=== PATIENT | male | born 1975 | race Caucasian/White ===

== ENCOUNTER → 2017-09-23 14:44 | Outpatient (CLI) | payer BC, SELFPAY ==
[2017-09-24 18:46] LABS: Bacteria 0 SEEN /hpf (None Seen); Mucous, Urine 0 SEEN /hpf (<or=2+); Red Blood Cells-Urine 0 SEEN /hpf (0-5); Squamous Epithelial Cells - UA 0 SEEN /hpf (0-5)
[2017-09-24 19:34] LABS: Color, Urine Yellow (Yellow); Glucose, Dipstick Normal (Normal); Ketone-Dipstick Negative (Negative); Leukocyte Esterase-Dipstick 25 /ul (Negative); Nitrite-Dipstick Negative (Negative); Occult Blood-Urine Negative /ul (Negative); Protein-Dipstick Negative (Negative); Urine Bilirubin Dipstick Negative (Negative); Urine Clarity Clear (Clear); Urine Urobilinogen 1 mg/dl (Normal)
[2017-09-24 19:53] LABS: White Blood Cells 0-5 SEEN /hpf (0-5)
== END ==
PROVIDERS: PCP Family Medicine; Visit Provider Physician Assistant
DX: N39.0 Urinary tract infection, site not specified (principal)
CPT/HCPCS: 81001; 87086

== ENCOUNTER 2018-03-25 14:25 | Emergency (ER) | payer BC, SELFPAY ==
[2018-03-25 14:26] VITALS: BP 120/69; PULSE 73; RESP 15; TEMP 36.8; O2SAT 99; BMI 24.9
[2018-03-25 15:25] VITALS: RESP 18
--- NOTE | 2018-03-25 15:55 | RAD_ITS ---
STUDY: X-RAY - LUMBAR SPINE REASON FOR EXAM: Male, 42 years old. Back pain TECHNIQUE: 3 view(s) of the lumbar spine were obtained. COMPARISON: None FINDINGS: Normal lumbar lordosis. There is no substantial scoliosis. There is a normal alignment of the vertebrae. Normal vertebral bodies and endplates. Normal disc space heights. The soft tissue structures are unremarkable. RAD/Lumbar Spine 2 or 3 Views IMPRESSION: Normal x-ray examination of the lumbar spine. Electronically Signed: Theodore Jacobo MD at 16:31 EDT , Service support ,
[2018-03-25] MEDS: HYDROcodone Bitartrate/Apap 5/325 Tablet PO (16:12)
--- NOTE | 2018-03-25 16:32 | ED.DCSUM_ITS ---
- ER Visit Summary Date of Service: 03/25/18 Chief Complaint: Back pain History of Present Illness: The patient is a [address] Rust. Reports that he was lifting up a 45 pound weight at the gym today and had sudden onset of low back pain. He reports the pain is a dull constant pain that is sharp with movement. Is 9 out of 10 with movement or bending. Is 7 out of 10 when he remained still. Is taken ibuprofen without relief. No numbness or weakness. No radiation to his legs. No problems with his bowels or his bladder. No groin numbness. No recent trauma otherwise. No fall or MVA. No red flags. Physical Examination: Vitals: Stable. Afebrile. General: A&O x 3. NAD. Cardiovascular exam: Regular rate and rhythm, no murmur, rub or gallop. Respiratory exam: Clear to auscultation bilaterally. No wheezes or stridor. Abdominal exam: Soft, nontender, nondistended, normal bowel sounds. No peritoneal signs. Back: Diffuse minimal tenderness to palpation over the lumbar spine and the paraspinous musculature in the lumbar region. No point tenderness. Negative straight leg bilaterally. 5/5 DF, PF, EHL bilaterally. Normal sensation to light touch throughout. Extremity: No clubbing, cyanosis, or edema. Test Results: Lumbar spine x-rays are normal. Emergency Department Course and Treatment: An [facility] report was obtained which was negative. He was given a dose of [place] here. Treatment Plan: Patient will be discharged with [place]. Instructed to try a TENS unit. Follow-up Dr. Rust in 3-5 days if not improving. Return to the emergency department for any worsening symptoms. Disposition: To home in improved and stable condition. Impression: 1. Back pain, acute. This note was generated with [employer] dictation software. It may contain incorrect words, spelling, and punctuation that were not noted in review of the chart prior to signing ED Disposition - Plan for ED Patient: Disposition: Home or Assisted Living Chief Complaint: Back Instructions: ED Neck Back Pain General Prescriptions: Hydrocodone/Acetaminophen [[place] 5-325 Tablet] 1 - 2 each PO 4X/DAY PRN PRN 5 Days #20 tablet PRN Reason: Pain Referrals: César Rust MD [Primary Care Provider] - 3-5 Days if not improving
[2018-03-25 16:38] VITALS: RESP 14
== END 2018-03-25 16:39 | disposition home or self-care (01) ==
PROVIDERS: Emergency Provider Emergency Medicine; PCP Internal Medicine
DX: M54.5 Low back pain (principal); F32.9 Major depressive disorder, single episode, unspecified; F41.9 Anxiety disorder, unspecified; Z72.0 Tobacco use
CPT/HCPCS: 72100; 99283